=== PATIENT | male | born 1990 | race Caucasian/White ===

== ENCOUNTER 2016-11-03 09:35 | Emergency (ER) | payer OTHER ==
--- NOTE | 2016-11-03 09:50 | CPEKG ---
Heart Rate: 56 RR Interval: 1071 P-R Interval: 208 QRSD Interval: 96 QT Interval: 424 QTC Interval: 410 P [place]: 5 QRS [place]: 89 T Wave [place]: 54 EKG Severity - ABNORMAL ECG - EKG Impression: SINUS RHYTHM EKG Impression: PROBABLE LEFT VENTRICULAR HYPERTROPHY EKG Impression: ST ELEV, PROBABLE NORMAL EARLY REPOL PATTERN Electronically Signed By: Jaison Guerra 03-Nov-2016 10:37:31
[2016-11-03 09:56] VITALS: RESP 16; TEMP 98.1
[2016-11-03] MEDS ORDERED: NS 1,000 ML IV ONE (09:58)
[2016-11-03 10:11] LABS: COLOR YELLOW; LEUKOCYTE ESTERASE,URINE NEGATIVE (NEGATIVE); NITRITE,URINE NEGATIVE (NEGATIVE)
[2016-11-03 10:20] LABS: MUCUS 1+ /lpf (NONE-1+); RBC,URINE NONE SEEN /hpf (0-3); WBC,URINE NONE SEEN /hpf (0-3)
--- NOTE | 2016-11-03 10:20 | EDPHY ---
H & P Time Seen by Provider: 11/03/16 09:56 HPI/ROS: Chief complaint. Chest pain, abdominal pain, urinary symptoms HPI. 26-year-old male presents with 5 day history of chest pain. He tells me that his chest discomfort is dull and located in the left anterior chest. He has discomfort every 10 minutes and lasts about 30 seconds. No radiation. No shortness of breath. It is more noticeable and present when he sitting. There is no change with breathing, position, exertion. It does seem to be worse with moving his left arm. No fever cough. No unusual activity. He has had similar symptoms in 2013 He also has right-sided abdominal pain for 5 days that occurs only in the morning. It goes away with bowel movement and then does not recur during the day until the next morning and then again goes away with bowel movement. No nausea or vomiting. It is worse with rolling around in bed. Discomfort with urination and some urinary frequency. It does not burn however. Notes penis and testicles are normal. Patient had melanoma removed left posterior shoulder 1 week ago. Biopsy actually showed severe atypia but because melanoma room runs in his family the lesion was removed. Appendectomy 1 and half months ago ROS Constitutional. no fever/chills, no weakness Eyes. no problems with vision ENT. no sore throat, no nasal drainage Cardiovascular. Left-sided chest discomfort Respiratory. no shortness of breath, no cough Abdominal. Right-sided abdominal pain . Discomfort with urination MS. no calf pain/swelling, no neck/back pain, no joint pain Skin. no rash Lymph. no swollen glands Neuro. no headache, no dizziness, no difficulty walking or with speech Past Medical/Surgical History: Appendectomy in August. Melanoma removed 1 week ago. Family history negative for early heart disease Social History: , nonsmoker, no alcohol Smoking Status: Never smoked Physical Exam: General Appearance: Alert well-developed male mild distress vital signs are stable Eyes: Pupils equal and round no pallor or injection. ENT, Mouth: Mucous membranes are moist. Respiratory: There are no retractions, lungs are clear to auscultation. Cardiovascular: Regular rate and rhythm. Gastrointestinal: Abdomen is soft and nontender, no masses, bowel sounds normal. No tenderness to palpation Neurological: Awake and alert, sensory and motor exams grossly normal. Skin: Warm and dry, no rashes. Musculoskeletal: Neck is supple nontender. Extremities symmetrical, full range of motion. Psychiatric: Patient is oriented X 3, there is no agitation. Constitutional: Initial Vital Signs Temperature (C) 36.7 C 11/03/16 09:50 Heart Rate 57 L 11/03/16 09:50 Respiratory Rate 16 11/03/16 09:50 Blood Pressure 129/77 H 11/03/16 09:50 O2 Sat (%) 95 11/03/16 09:50 O2 Delivery Mode Room Air Allergies/Adverse Reactions: amoxicillin Allergy (Verified 11/03/16 09:57) Home Medications: Medication Instructions Recorded NK [No Known Home Meds] 11/03/16 Medical Decision Making - Diagnostics EKG Interpretation: EKG interpreted by me shows normal sinus rhythm with normal interval and axis. QRS shows possible LVH. Diffuse J-point elevation consistent with early repolarization pattern Imaging Results: Imaging Impressions Abdomen X-Ray 11/03/16 10:22 Impression: Constipation. Chest X-Ray 11/03/16 10:22 Impression: 1. Negative chest. 2. ? Left shoulder calcific tendinitis. Consider obtaining dedicated left shoulder x-rays, as clinically directed. Chest x-ray interpreted by me as negative Abdominal x-ray shows no evidence of free air or air-fluid levels. Consistent with constipation Procedures: IV normal saline, monitor ED Course/Re-evaluation: Re-evaluation 11:50 a.m. the patient is stable. He and I discussed imaging and lab results. We discussed treatment plan including criteria for return and importance of follow-up and further evaluation. He expresses understanding and agreement Differential Diagnosis: I considered acute coronary syndrome, pneumonia, pneumothorax, pulmonary embolus. For his abdomen I considered small-bowel obstruction, hollow viscous perforation, urinary tract infection and pyelonephritis - Data Points Laboratory Results: Laboratory Results 11/03/16 10:27 11/03/16 10:27 11/03/16 11/03/16 11/03/16 10:27 10:27 10:27 WBC 4.23 10^3/uL 10^3/uL (3.80-9.50) RBC 5.26 10^6/uL 10^6/uL (4.40-6.38) Hgb 15.6 g/dL g/dL (13.7-17.5) Hct 44.7 % % (40.0-51.0) MCV 85.0 fL fL (81.5-99.8) MCH 29.7 pg pg (27.9-34.1) MCHC 34.9 g/dL g/dL (32.4-36.7) RDW 11.9 % % (11.5-15.2) Plt Count 225 10^3/uL 10^3/uL (150-400) MPV 10.2 fL fL (8.7-11.7) Neut % (Auto) 47.5 % % (39.3-74.2) Lymph % (Auto) 38.1 % % (15.0-45.0) [place] % (Auto) 9.2 % % (4.5-13.0) Eos % (Auto) 4.5 % % (0.6-7.6) Baso % (Auto) 0.5 % % (0.3-1.7) Nucleat RBC Rel Count 0.0 % % (0.0-0.2) Absolute Neuts (auto) 2.01 10^3/uL 10^3/uL (1.70-6.50) Absolute Lymphs (auto) 1.61 10^3/uL 10^3/uL (1.00-3.00) Absolute Monos (auto) 0.39 10^3/uL 10^3/uL (0.30-0.80) Absolute Eos (auto) 0.19 10^3/uL 10^3/uL (0.03-0.40) Absolute Basos (auto) 0.02 10^3/uL 10^3/uL (0.02-0.10) Absolute Nucleated RBC 0.00 10^3/uL 10^3/uL (0-0.01) Immature Gran % 0.2 % % (0.0-1.1) Immature Gran # 0.01 10^3/uL 10^3/uL (0.00-0.10) D-Dimer < 0.27 ug/mLFEU ug/mLFEU (0.00-0.50) Sodium 140 mEq/L mEq/L (134-144) Potassium 4.3 mEq/L mEq/L (3.5-5.2) Chloride 101 mEq/L mEq/L (97-110) Carbon Dioxide 27 mEq/l mEq/l (22-31) Anion Gap 12 mEq/L mEq/L (8-16) BUN 17 mg/dL mg/dL (7-23) Creatinine 0.9 mg/dL mg/dL (0.7-1.3) Estimated GFR > 60 Glucose 93 mg/dL mg/dL (70-100) Calcium 9.6 mg/dL mg/dL (8.5-10.4) Troponin I < 0.012 ng/mL ng/mL (0.000-0.034) Urine Color Urine Appearance Urine pH Ur Specific [place] Urine Protein Urine Ketones Urine Blood Urine Nitrate Urine Bilirubin Urine Urobilinogen Ur Leukocyte Esterase Urine RBC Urine WBC Ur Epithelial Cells Urine Mucus Urine Glucose 11/03/16 10:00 WBC RBC Hgb Hct MCV MCH MCHC RDW Plt Count MPV Neut % (Auto) Lymph % (Auto) [place] % (Auto) Eos % (Auto) Baso % (Auto) Nucleat RBC Rel Count Absolute Neuts (auto) Absolute Lymphs (auto) Absolute Monos (auto) Absolute Eos (auto) Absolute Basos (auto) Absolute Nucleated RBC Immature Gran % Immature Gran # D-Dimer Sodium Potassium Chloride Carbon Dioxide Anion Gap BUN Creatinine Estimated GFR Glucose Calcium Troponin I Urine Color YELLOW Urine Appearance CLEAR Urine pH 6.0 (5.0-7.5) Ur Specific [place] 1.020 (1.002-1.030) Urine Protein NEGATIVE (NEGATIVE) Urine Ketones NEGATIVE (NEGATIVE) Urine Blood NEGATIVE (NEGATIVE) Urine Nitrate NEGATIVE (NEGATIVE) Urine Bilirubin NEGATIVE (NEGATIVE) Urine Urobilinogen 0.2 EU EU (0.2-1.0) Ur Leukocyte Esterase NEGATIVE (NEGATIVE) Urine RBC NONE SEEN /hpf /hpf (0-3) Urine WBC NONE SEEN /hpf /hpf (0-3) Ur Epithelial Cells TRACE /lpf /lpf (NONE-1+) Urine Mucus 1+ /lpf /lpf (NONE-1+) Urine Glucose NEGATIVE (NEGATIVE) Medications Given: Discontinued Medications Sodium Chloride (Ns) 1,000 mls @ 0 mls/hr IV EDNOW ONE; Wide Open PRN Reason: Protocol Stop: 11/03/16 09:59 Last Admin: 11/03/16 10:10 Dose: 1,000 mls Departure - Departure Disposition: Home, Routine, Self-Care Clinical Impression: Chest pain Qualifiers: Chest pain type: other chest pain Qualified Code(s): R07.89 - Other chest pain ; R07.8 - Other chest pain Condition: Good Instructions: Chest Pain (ED), Constipation (ED) Additional Instructions: Increased fluids including fruit and prune juice. May use harmeet Colace and magnesium citrate as needed for constipation. Return for worsening chest discomfort or trouble breathing. Recheck in 2 days if not improving Easy activity today. Referrals: Marlin Saunders MD [place] [facility] [place] - As per Instructions Rodney Posadas MD [Primary Care Provider] - 2-3 days, if not improved
[2016-11-03 10:32] LABS: % IMMATURE GRANULYOCYTES 0.2 % (0.0-1.1); ABSOLUTE IMMATURE GRANULOCYTES 0.01 10^3/uL (0.00-0.10); ADD DIFF? NO; ADD MORPH? NO; ADD SCAN? NO; ATYPICAL LYMPHOCYTE FLAG 0 (0-99); FRAGMENT RBC FLAG 0 (0-99); HEMATOCRIT 44.7 % (40.0-51.0); HEMOGLOBIN 15.6 g/dL (13.7-17.5); LEFT SHIFT FLG 0 (0-99); LIPEMIA HEMOLYSIS FLAG 90 (0-99); MEAN CELL HEMOGLOBIN 29.7 pg (27.9-34.1); MEAN CELL HEMOGLOBIN CONCENTR. 34.9 g/dL (32.4-36.7); MEAN PLATELET VOLUME 10.2 fL (8.7-11.7); PLATELET CLUMPS FLAG 0 (0-99); PLATELET COUNT 225 10^3/uL (150-400); RED BLOOD CELL COUNT 5.26 10^6/uL (4.40-6.38); RED CELL DISTRIBUTION WIDTH 11.9 % (11.5-15.2)
[2016-11-03 10:46] LABS: ANION GAP 12 mEq/L (8-16); CALCIUM 9.6 mg/dL (8.5-10.4); CARBON DIOXIDE 27 mEq/l (22-31); CHLORIDE 101 mEq/L (97-110); CREATININE 0.9 mg/dL (0.7-1.3); GLOMERULAR FILTRATION RATE > 60; GLUCOSE 93 mg/dL (70-100); POTASSIUM 4.3 mEq/L (3.5-5.2); SODIUM 140 mEq/L (134-144)
[2016-11-03 11:01] LABS: TROPONIN I < 0.012 ng/mL (0.000-0.034)
[2016-11-03 11:03] VITALS: O2SAT 97
[2016-11-03 12:17] VITALS: BP 109/81; PULSE 59
== END 2016-11-03 12:26 | disposition home or self-care (01) ==
LOC: CED 09:35
DX: R07.89 Other chest pain (principal); E86.9 Volume depletion, unspecified
CPT/HCPCS: 71020-PO; 74000-PO; 80048-PO; 81003-PO; 81015-PO; 84484-PO; 85025-PO; 85378-PO

== ENCOUNTER 2017-05-20 13:56 | Emergency (ER) | payer OTHER ==
--- NOTE | 2017-05-20 15:06 | EDPHY ---
H & P Smoking Status: Never smoked Time Seen by Provider: 05/20/17 14:53 HPI/ROS: CHIEF COMPLAINT: Abdominal pain HISTORY OF PRESENT ILLNESS: 27-year-old male presents to the emergency department by private vehicle with abdominal pain for 12 days. The patient has been to urgent care twice with abdominal pain in the last 2 weeks. The patient states that he initially had a mild headache and pressure in his ears that started almost 2 weeks ago and now over the last 12 days has had generalized abdominal pain. No nausea or vomiting. His appetite has been normal. He had 2 normal bowel movements this morning. No diarrhea. No blood in his stool. No melena. No fevers or chills. No chest pain or difficulty breathing. No URI symptoms. No reported trauma. The patient was given Zofran by urgent care and then was brought back today for further evaluation because he had ongoing abdominal pain, he was sent to the emergency department for evaluation. REVIEW OF SYSTEMS: Constitutional: No fever, no chills. Eyes: No double or blurry vision. ENT: No sore throat. Respiratory: No cough, no shortness of breath. Cardiac: No chest pain. Gastrointestinal: Abdominal pain. No vomiting or diarrhea. Genitourinary: No dysuria. Musculoskeletal: No neck or back pain. Skin: No rashes. Neurological: No headache. (Almaz Spear) Past Medical/Surgical History: Appendectomy (Almaz Spear) Social History: and works in accounting at [employer] (Almaz Spear) Physical Exam: General Appearance: Alert, no distress. 36.6 temperature Eyes: Pupils equal and round. Extraocular motions are all intact. ENT: Mouth: Mucous membranes moist. Respiratory: No wheezing, rhonchi, or rales, lungs are clear to auscultation. Cardiovascular: Regular rate and rhythm. Gastrointestinal: Abdomen is soft. Tenderness with palpation in the periumbilical area as well as the super pubic area. There is no rebound, guarding or masses noted. No CVA tenderness bilaterally. Neurological: Alert and oriented x 3, cranial nerves II through XII grossly intact Skin: Warm and dry, no rashes. Musculoskeletal: Nontender to palpate along the cervical, thoracic or lumbar spine. Neck is supple. Extremities: Full range of motion and no peripheral edema. Psychiatric: Patient is oriented X 3, there is no agitation. (Almaz Spear) Constitutional: Initial Vital Signs Temperature (C) 36.6 C 05/20/17 14:04 Heart Rate 66 05/20/17 14:04 Respiratory Rate 17 05/20/17 14:04 Blood Pressure 123/69 H 05/20/17 14:04 O2 Sat (%) 96 05/20/17 14:04 O2 Delivery Mode Room Air Allergies/Adverse Reactions: amoxicillin Allergy (Verified 05/20/17 14:04) Home Medications: Medication Instructions Recorded NK [No Known Home Meds] 11/03/16 Medical Decision Making - Diagnostics Imaging: Discussed imaging studies w/ yard caller Radiologist - Diagnostics Imaging Results: Imaging Impressions Abdomen CT 05/20/17 16:49 Impression: 1. 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 Consider follow-up MRI lumbar spine, if clinically indicated. 2. Minimal free fluid in the pelvis, which is nonspecific. 3. No bowel obstruction, pneumoperitoneum, or significant adenopathy. 4. Limited due to lack of oral contrast. Findings and recommendations discussed with Emergency Department physician, Almaz Spear PA-C, at 1755 hours, on May 20, 2017. Final report concurs with initial preliminary interpretation. ED Course/Re-evaluation: 27-year-old male presents to the emergency department with lower abdominal pain for last 12 days. Laboratory studies are all unremarkable including normal CBC , chemistries, LFTs, lipase and urine. Case was discussed with Dr. Jaison Guerra, secondary supervising physician, who did not directly evaluate the patient but agrees with treatment and plan. GI cocktail was given to the patient was no change in symptoms. The patient continued to have pain with palpation in the suprapubic area with palpation. I discussed pros and cons of CT imaging of his abdomen and pelvis including radiation exposure and the patient requests CT scan. CT imaging of the abdomen and pelvis reveals no evidence of diverticulitis or colitis or obstruction. He has had a previous appendectomy. There is no evidence of free air. There was some trace free fluid in the pelvis. The patient has no rebound tenderness. No guarding. He has no fever and no white blood cell count elevation. The patient feels hungry. He would like to be was discharged home. He was given referral to addiction social worker. He did have evidence of moderate constipation and I encouraged him to use [id number] magnesium citrate. He was instructed to return to the emergency department if he developed vomiting , fever, worsening abdominal pain, or any other concerns. (Almaz Spear) I did not see this patient while he was in the emergency department. However his care is discussed with the PA while a hurtado is in the department. I agree with treatment plan and management (Jaison Guerra) Differential Diagnosis: Including but not limited to colitis, diverticulitis, bowel obstruction, constipation, inflammatory bowel disease, mesenteric adenitis (Almaz Spear) - Data Points Laboratory Results: Laboratory Results 05/20/17 14:50 05/20/17 14:50 05/20/17 05/20/17 05/20/17 15:38 14:50 14:50 WBC 7.53 10^3/uL 10^3/uL (3.80-9.50) RBC 5.86 10^6/uL 10^6/uL (4.40-6.38) Hgb 17.4 g/dL g/dL (13.7-17.5) Hct 49.7 % % (40.0-51.0) MCV 84.8 fL fL (81.5-99.8) MCH 29.7 pg pg (27.9-34.1) MCHC 35.0 g/dL g/dL (32.4-36.7) RDW 11.7 % % (11.5-15.2) Plt Count 231 10^3/uL 10^3/uL (150-400) MPV 10.5 fL fL (8.7-11.7) Neut % (Auto) 62.3 % % (39.3-74.2) Lymph % (Auto) 23.5 % % (15.0-45.0) [place] % (Auto) 6.5 % % (4.5-13.0) Eos % (Auto) 6.9 % % (0.6-7.6) Baso % (Auto) 0.4 % % (0.3-1.7) Nucleat RBC Rel Count 0.0 % % (0.0-0.2) Absolute Neuts (auto) 4.69 10^3/uL 10^3/uL (1.70-6.50) Absolute Lymphs (auto) 1.77 10^3/uL 10^3/uL (1.00-3.00) Absolute Monos (auto) 0.49 10^3/uL 10^3/uL (0.30-0.80) Absolute Eos (auto) 0.52 10^3/uL H 10^3/uL (0.03-0.40) Absolute Basos (auto) 0.03 10^3/uL 10^3/uL (0.02-0.10) Absolute Nucleated RBC 0.00 10^3/uL 10^3/uL (0-0.01) Immature Gran % 0.4 % % (0.0-1.1) Immature Gran # 0.03 10^3/uL 10^3/uL (0.00-0.10) Sodium 141 mEq/L mEq/L (135-145) Potassium 3.8 mEq/L mEq/L (3.5-5.2) Chloride 97 mEq/L mEq/L (97-110) Carbon Dioxide 31 mEq/l mEq/l (22-31) Anion Gap 13 mEq/L mEq/L (8-16) BUN 15 mg/dL mg/dL (7-23) Creatinine 0.9 mg/dL mg/dL (0.7-1.3) Estimated GFR > 60 Glucose 79 mg/dL mg/dL (70-100) Calcium 9.8 mg/dL mg/dL (8.5-10.4) Total Bilirubin 0.9 mg/dL mg/dL (0.1-1.4) Conjugated Bilirubin 0.4 mg/dL mg/dL (0.0-0.5) Unconjugated Bilirubin 0.5 mg/dL mg/dL (0.0-1.1) AST 30 IU/L IU/L (17-59) ALT 40 IU/L IU/L (21-72) Alkaline Phosphatase 73 IU/L IU/L (38-126) Total Protein 8.0 g/dL g/dL (6.3-8.2) Albumin 4.7 g/dL g/dL (3.5-5.0) Lipase 70 IU/L IU/L (23-300) Urine Color PALE YELLOW Urine Appearance CLEAR Urine pH 7.0 (5.0-7.5) Ur Specific [place] 1.004 (1.002-1.030) Urine Protein NEGATIVE (NEGATIVE) Urine Ketones NEGATIVE (NEGATIVE) Urine Blood NEGATIVE (NEGATIVE) Urine Nitrate NEGATIVE (NEGATIVE) Urine Bilirubin NEGATIVE (NEGATIVE) Urine Urobilinogen NEGATIVE EU EU (0.2-1.0) Ur Leukocyte Esterase NEGATIVE (NEGATIVE) Urine RBC NONE SEEN /hpf /hpf (0-3) Urine WBC 1-3 /hpf /hpf (0-3) Ur Epithelial Cells NONE SEEN /lpf /lpf (NONE-1+) Urine Bacteria TRACE /hpf H /hpf (NONE SEEN) Urine Mucus TRACE /lpf /lpf (NONE-1+) Urine Glucose NEGATIVE (NEGATIVE) Medications Given: Discontinued Medications Al Hydroxide/Mg Hydroxide (Maalox Susp) 30 ml PO ONCE ONE Stop: 05/20/17 16:09 Last Admin: 05/20/17 16:19 Dose: 30 ml Hyoscyamine Sulfate (Levsin, Hyomax-Sl) 0.25 mg PO ONCE ONE Stop: 05/20/17 16:09 Last Admin: 05/20/17 16:18 Dose: 0.25 mg Lidocaine (Lidocaine 2% Viscous) 15 ml PO ONCE ONE Stop: 05/20/17 16:09 Last Admin: 05/20/17 16:19 Dose: 15 ml Departure - Departure Disposition: Home, Routine, Self-Care Clinical Impression: Abdominal pain Qualifiers: Abdominal location: lower abdomen, unspecified Qualified Code(s): R10.30 - Lower abdominal pain, unspecified Condition: Good Instructions: Abdominal Pain (ED) Additional Instructions: Abdominal Pain: Return to the Emergency Department immediately for increasing pain, fever, vomiting, or if not completely better in 8-12 hours. Magnesium citrate as discussed to help relieve symptoms constipation. Follow up with addiction social worker regarding your ongoing abdominal pain. Referrals: Rodney Posadas MD [Primary Care Provider] - As per Instructions Augusta Garcia MD [Medical Doctor] - 2-3 days, if not improved ( Dairy Consultant on-call)
[2017-05-20 15:28] LABS: PLATELET COUNT 231 10^3/uL (150-400)
[2017-05-20] MEDS ORDERED: LIDOCAINE 2% VISCOUS 15 ML UDCUP PO ONE (16:08)
[2017-05-20] MEDS ORDERED: HYOSCYAMINE SULFATE 0.125 MG TAB PO ONE (16:08)
[2017-05-20] MEDS ORDERED: MAG HYDROX/AL HYDROX/SIMETH 30 ML UDCUP PO ONE (16:08)
[2017-05-20] MEDS ORDERED: IOPAMIDOL (ISOVUE-300) 100 ML BTL ONE (17:26)
[2017-05-20 18:03] VITALS: RESP 16
[2017-05-20 18:21] VITALS: BP 131/85; PULSE 57; TEMP 98.6; O2SAT 96
== END 2017-05-20 18:24 | disposition home or self-care (01) ==
DX: R10.30 Lower abdominal pain, unspecified (principal); Z90.49 Acquired absence of other specified parts of digestive tract
CPT/HCPCS: Q9967

== ENCOUNTER → 2017-09-04 | Outpatient (CLI) | payer OTHER | LOC: FIMAGING 07:06 | PROVIDERS: ATTEND Physician Assistant Surgical | DX: M51.26 Other intervertebral disc displacement, lumbar region (principal) ==

== ENCOUNTER → 2017-09-09 | Outpatient (CLI) | payer OTHER | LOC: FLAB 14:40 | PROVIDERS: ATTEND Physician Assistant Surgical | DX: M51.37 Other intervertebral disc degeneration, lumbosacral region (principal) ==

== ENCOUNTER → 2017-12-30 | Outpatient (CLI) | payer OTHER | LOC: FIMAGING 07:30 | PROVIDERS: ATTEND Physician Assistant Surgical | DX: M48.02 Spinal stenosis, cervical region (principal); M50.322 Other cervical disc degeneration at C5-C6 level; G95.20 Unspecified cord compression; M47.26 Other spondylosis with radiculopathy, lumbar region; M47.27 Other spondylosis with radiculopathy, lumbosacral region; G56.01 Carpal tunnel syndrome, right upper limb; G56.20 Lesion of ulnar nerve, unspecified upper limb ==

== ENCOUNTER → 2018-02-18 | Outpatient (CLI) | payer OTHER ==
[~2018-02-18] MED LIST: GADOBUTROL 10 ML VIAL IVP ONE
== END ==
LOC: FIMAGING 09:53
PROVIDERS: ATTEND Psychiatry & Neurology Neurology
DX: R20.2 Paresthesia of skin (principal)
CPT/HCPCS: A9585